=== PATIENT | female | born 2000 | race Caucasian/White ===

== ENCOUNTER 2020-05-07 15:21 | Emergency (ER) | payer BC, SELFPAY ==
[2020-05-07 15:41] VITALS: BP 142/61; PULSE 83; RESP 16; TEMP 37; O2SAT 99; BMI 22.8
[2020-05-07 22:00] VITALS: BP 154/67; PULSE 68; RESP 15; TEMP 36.9; O2SAT 100
--- NOTE | 2020-05-08 01:20 | ED.ABDPAIN ---
HPI - Abdominal Pain General Chief Complaint: Abdominal Pain <ANNE Gerber Last Filed: 05/08/20 01:59> Stated Complaint: LOWER BACK PAIN <ANNE Gerber Last Filed: 05/08/20 01:59> Time Seen by Provider: 05/08/20 00:50 <ANNE Gerber Last Filed: 05/08/20 01:59> Source: patient <ANNE Gerber Last Filed: 05/08/20 01:59> Mode of arrival: ambulatory <ANNE Gerber Last Filed: 05/08/20 01:59> Limitations: no limitations <ANNE Gerber Last Filed: 05/08/20 01:59> History of Present Illness HPI narrative: Patient presents to ED for bilateral flank pain for about a week and half. Patient states she had just finished treatment for urinary tract infection. Patient states she had hematuria and dysuria and that improved, but still had bilateral flank pain. Patient states history of pyelonephritis as a child. Patient denies any recent trauma to the back or abdomen. <ANNE Gerber Last Filed: 05/08/20 01:59> Related Data Allergies/Adverse Reactions: Allergies Allergy/AdvReac Type Severity Reaction Status Date / Time No Known Allergies Allergy Verified 05/07/20 15:42 <ANNE Gerber Last Filed: 05/08/20 01:59> Review of Systems Review of Systems Yes all other systems are reviewed and are negative <ANNE Gerber Last Filed: 05/08/20 01:59> Constitutional: Reports as per HPI and Reports no additional constitutional complaints <ANNE Gerber Last Filed: 05/08/20 01:59> Eyes: Reports as per HPI and Reports no additional eye complaints <ANNE Gerber Last Filed: 05/08/20 01:59> Reports system reviewed and no additional complaints, except as documented and Reports as per HPI <ANNE Gerber Last Filed: 05/08/20 01:59> Cardiovascular: Reports as per HPI and Reports no additional cardiovascular complaints <ANNE Gerber Last Filed: 05/08/20 01:59> Respiratory: Reports as per HPI and Reports no additional respiratory complaints <ANNE Gerber Last Filed: 05/08/20 01:59> Gastrointestinal: Reports as per HPI and Reports no additional gastrointestinal complaints <ANNE Gerber Last Filed: 05/08/20 01:59> Comments: Bilateral flank pain <ANNE Gerber Last Filed: 05/08/20 01:59> Genitourinary: Reports no additional female genitourinary complaints and Reports as per HPI <ANNE Gerber Last Filed: 05/08/20 01:59> Musculoskeletal: Reports no additional musculoskeletal complaints and Reports as per HPI <ANNE Gerber Last Filed: 05/08/20 01:59> Psychiatric: Reports no additional psychiatric complaints and Reports as per HPI <ANNE Gerber Last Filed: 05/08/20 01:59> Physical Exam Vital Signs: Vital Signs: Last Vital Signs Temp 98.5 F 05/07/20 22:00 Pulse 68 05/07/20 22:00 Resp 05/07/20 22:00 BP 154/67 H 05/07/20 22:00 Pulse Ox 100 05/07/20 22:00 Body Mass Index 22.8 <ANNE Gerber Last Filed: 05/08/20 01:59> Vital Signs: Last Vital Signs Temp 98.5 F 05/07/20 22:00 Pulse 68 05/07/20 22:00 Resp 05/07/20 22:00 BP 154/67 H 05/07/20 22:00 Pulse Ox 100 05/07/20 22:00 Body Mass Index 22.8 <Santiago Ornelas MD - Last Filed: 05/08/20 03:17> Const: General: cooperative, healthy appearing, comfortable, no acute distress, well developed, alert and awake <ANNE Gerber Last Filed: 05/08/20 01:59> Orientation/consciousness: patient oriented x3 <ANNE Gerber Last Filed: 05/08/20 01:59> HENMT: Head: Yes normal to inspection and Yes No palpable skull fracture present <ANNE Gerber Last Filed: 05/08/20 01:59> Eyes: General: appearance normal, both eyes and all related structures <ANNE Gerber Last Filed: 05/08/20 01:59> Neck: Neck: Yes normal visual inspection and Yes full ROM <ANNE Gerber Golden Last Filed: 05/08/20 01:59> Chest: Chest palpation & inspection: normal inspection of the chest and normal palpation of entire chest wall <ANNE Gerber Golden Last Filed: 05/08/20 01:59> Resp: Effort & Inspection: normal respiratory effort and able to speak in complete sentences <ANNE Gerber Last Filed: 05/08/20 01:59> Auscultation: clear to auscultation bilaterally <ANNE Gerber Last Filed: 05/08/20 01:59> Cardio: Jugular venous distension: no JVD <ANNE Gerber Last Filed: 05/08/20 01:59> Heart sounds: S1 normal heart sound present and S2 normal heart sound present <ANNE Gerber Last Filed: 05/08/20 01:59> GI: Inspection: Yes normal to inspection and No abdominal wall ecchymosis <ANNE Gerber Last Filed: 05/08/20 01:59> Palpation (GI): Soft to palpation, not firm, nontender, no guarding and not rigid <ANNE Gerber Last Filed: 05/08/20 01:59> : General: Yes CVA tenderness (Bilateral) and Yes no CVA tenderness <ANNE Gerber Last Filed: 05/08/20 01:59> Back/Spine/Pelvis: Back: no CVA tenderness, CVA tenderness (Bilateral) and No back tenderness <ANNE Gerber Last Filed: 05/08/20 01:59> Skin: General skin exam: no rashes or lesions noted and elasticity normal <ANNE Gerber Last Filed: 05/08/20 01:59> Neuro: General: patient oriented x3 and CN's II-XI intact bilaterally <ANNE Gerber Last Filed: 05/08/20 01:59> Cranial nerves: Yes CN's II-XII intact bilaterally <ANNE Gerber Last Filed: 05/08/20 01:59> Extrem: General: Yes normal to inspection and Yes full ROM <ANNE Gerber - Last Filed: 05/08/20 01:59> Psych: Appearance: grossly normal, well kempt and not disheveled <ANNE Gerber - Last Filed: 05/08/20 01:59> Course Course Course Narrative: Patient will have labs drawn to evaluate kidney function, UA to rule out any UTI, most likely may go for abdominal CT scan to rule out kidney stones or pyelonephritis although unlikely patient is not in any distress. <ANNE Gerber - Last Filed: 05/08/20 01:59> Reevaluation(s) Reevaluation #1: Case signed out to <ANNE Gerber - Last Filed: 05/08/20 01:59> MDM - Abdominal Pain MDM Narrative Medical decision making narrative: Flank pain <ANNE Gerber Last Filed: 05/08/20 01:59> Lab Data Result diagrams: : 05/08/20 01:54 05/08/20 01:54 <ANNE Gerber - Last Filed: 05/08/20 01:59> Labs: Lab Results 05/08/20 05/08/20 05/08/20 Range/Units 01:54 01:54 01:54 WBC 11.8 H (4.8-10.8) X10*3/uL RBC 4.25 (4.20-5.50) X10*6/uL Hgb 12.9 (12.0-16.0) g/dl Hct 39.5 (37-47) % MCV 92.9 (80-98) fL MCH 30.4 (27.0-33.0) pg MCHC 32.7 (31.0-35.0) g/dl RDW 12.3 (11.0-16.0) % Plt Count 336 (160-400) X10*3/uL MPV 10.4 (9.4-12.3) fL Immature Gran % (Auto) 1.3 H (0.0-0.4) % Neut % (Auto) 62.1 (45-73) % Lymph % (Auto) 26.0 (20-40) % [place] % (Auto) 5.8 (2-11) % Eos % (Auto) 4.2 H (0-4) % Baso % (Auto) 0.6 (0-2) % Lymph # (Auto) 3.1 (1.2-4.9) X10*3/uL [place] # (Auto) 0.7 (0.1-1.2) X10*3/uL Eos # (Auto) 0.5 H (0.0-0.4) X10*3/uL Baso # (Auto) 0.1 (0.0-0.2) X10*3/uL Abs Immat Gran (auto) 0.15 H (0.00-0.03) X10*3/uL Absolute Neuts (auto) 7.3 (2.0-8.3) X10*3/uL Absolute Nucleated RBC 0.000 (0.0-0.012) X10*3/uL Nucleated RBC % (auto) 0.0 (0.0-0.2) /100WBC PT 11.5 (10.8-13.0) SEC INR 1.0 (0.9-1.1) APTT 27.1 (24.1-38.0) SEC Sodium 140 (135-145) mmol/L Potassium 4.3 (3.3-5.1) mmol/l Chloride 106 (96-108) mmol/L Carbon Dioxide 22 (22-29) mmol/L Anion Gap 16 (12-20) BUN 13 (9-16) mg/dL Creatinine 0.83 (0.5-1.4) mg/dL Estim Creat Clear Calc 84.7 Estimated GFR > 60 Random Glucose 90 (60-115) mg/dL Calcium 9.1 (8.4-10.2) mg/dL Total Bilirubin 0.4 (0.0-1.0) mg/dL Direct Bilirubin < 0.2 (0.0-0.5) mg/dL AST 15 (5-31) U/L ALT 9 (0-31) U/L Alkaline Phosphatase 30 L (39-117) U/L Total Protein 7.3 (6.5-8.0) g/dL Albumin 3.9 (3.5-5.0) g/dL Lipase 17 (8-78) U/L Urine Color Urine Appearance Urine pH (5.0-8.0) Ur Specific [place] (1.005-1.025) Urine Protein (NEG-TRACE) MG/DL Urine Glucose (UA) (NEG) MG/DL Urine Ketones (NEG) MG/DL Urine Blood (NEG) Urine Nitrite (NEG) Ur Leukocyte Esterase (NEG) Urine RBC (0) /HPF Urine WBC (0-4) /HPF Ur Squamous Epith Cells /LPF Calcium Oxalate Crystal /LPF Urine Bacteria /LPF Urine Mucus /LPF Urine Test (NEGATIVE) 05/08/20 Range/Units 01:54 WBC (4.8-10.8) X10*3/uL RBC (4.20-5.50) X10*6/uL Hgb (12.0-16.0) g/dl Hct (37-47) % MCV (80-98) fL MCH (27.0-33.0) pg MCHC (31.0-35.0) g/dl RDW (11.0-16.0) % Plt Count (160-400) X10*3/uL MPV (9.4-12.3) fL Immature Gran % (Auto) (0.0-0.4) % Neut % (Auto) (45-73) % Lymph % (Auto) (20-40) % [place] % (Auto) (2-11) % Eos % (Auto) (0-4) % Baso % (Auto) (0-2) % Lymph # (Auto) (1.2-4.9) X10*3/uL [place] # (Auto) (0.1-1.2) X10*3/uL Eos # (Auto) (0.0-0.4) X10*3/uL Baso # (Auto) (0.0-0.2) X10*3/uL Abs Immat Gran (auto) (0.00-0.03) X10*3/uL Absolute Neuts (auto) (2.0-8.3) X10*3/uL Absolute Nucleated RBC (0.0-0.012) X10*3/uL Nucleated RBC % (auto) (0.0-0.2) /100WBC PT (10.8-13.0) SEC INR (0.9-1.1) APTT (24.1-38.0) SEC Sodium (135-145) mmol/L Potassium (3.3-5.1) mmol/l Chloride (96-108) mmol/L Carbon Dioxide (22-29) mmol/L Anion Gap (12-20) BUN (9-16) mg/dL Creatinine (0.5-1.4) mg/dL Estim Creat Clear Calc Estimated GFR Random Glucose (60-115) mg/dL Calcium (8.4-10.2) mg/dL Total Bilirubin (0.0-1.0) mg/dL Direct Bilirubin (0.0-0.5) mg/dL AST (5-31) U/L ALT (0-31) U/L Alkaline Phosphatase (39-117) U/L Total Protein (6.5-8.0) g/dL Albumin (3.5-5.0) g/dL Lipase (8-78) U/L Urine Color YELLOW Urine Appearance CLEAR Urine pH 6.0 (5.0-8.0) Ur Specific [place] >= 1.030 H (1.005-1.025) Urine Protein NEG (NEG-TRACE) MG/DL Urine Glucose (UA) NEG (NEG) MG/DL Urine Ketones NEG (NEG) MG/DL Urine Blood TRACE (NEG) Urine Nitrite NEG (NEG) Ur Leukocyte Esterase NEG (NEG) Urine RBC 1-4 (0) /HPF Urine WBC 1-4 (0-4) /HPF Ur Squamous Epith Cells 2+ /LPF Calcium Oxalate Crystal 2+ /LPF Urine Bacteria 2+ /LPF Urine Mucus 2+ /LPF Urine Test NEGATIVE (NEGATIVE) <ANNE Gerber - Last Filed: 05/08/20 01:59> Lab Results 05/08/20 05/08/20 05/08/20 Range/Units 01:54 01:54 01:54 WBC 11.8 H (4.8-10.8) X10*3/uL RBC 4.25 (4.20-5.50) X10*6/uL Hgb 12.9 (12.0-16.0) g/dl Hct 39.5 (37-47) % MCV 92.9 (80-98) fL MCH 30.4 (27.0-33.0) pg MCHC 32.7 (31.0-35.0) g/dl RDW 12.3 (11.0-16.0) % Plt Count 336 (160-400) X10*3/uL MPV 10.4 (9.4-12.3) fL Immature Gran % (Auto) 1.3 H (0.0-0.4) % Neut % (Auto) 62.1 (45-73) % Lymph % (Auto) 26.0 (20-40) % [place] % (Auto) 5.8 (2-11) % Eos % (Auto) 4.2 H (0-4) % Baso % (Auto) 0.6 (0-2) % Lymph # (Auto) 3.1 (1.2-4.9) X10*3/uL [place] # (Auto) 0.7 (0.1-1.2) X10*3/uL Eos # (Auto) 0.5 H (0.0-0.4) X10*3/uL Baso # (Auto) 0.1 (0.0-0.2) X10*3/uL Abs Immat Gran (auto) 0.15 H (0.00-0.03) X10*3/uL Absolute Neuts (auto) 7.3 (2.0-8.3) X10*3/uL Absolute Nucleated RBC 0.000 (0.0-0.012) X10*3/uL Nucleated RBC % (auto) 0.0 (0.0-0.2) /100WBC PT 11.5 (10.8-13.0) SEC INR 1.0 (0.9-1.1) APTT 27.1 (24.1-38.0) SEC Sodium 140 (135-145) mmol/L Potassium 4.3 (3.3-5.1) mmol/l Chloride 106 (96-108) mmol/L Carbon Dioxide 22 (22-29) mmol/L Anion Gap 16 (12-20) BUN 13 (9-16) mg/dL Creatinine 0.83 (0.5-1.4) mg/dL Estim Creat Clear Calc 84.7 Estimated GFR > 60 Random Glucose 90 (60-115) mg/dL Calcium 9.1 (8.4-10.2) mg/dL Total Bilirubin 0.4 (0.0-1.0) mg/dL Direct Bilirubin < 0.2 (0.0-0.5) mg/dL AST 15 (5-31) U/L ALT 9 (0-31) U/L Alkaline Phosphatase 30 L (39-117) U/L Total Protein 7.3 (6.5-8.0) g/dL Albumin 3.9 (3.5-5.0) g/dL Lipase 17 (8-78) U/L Urine Color Urine Appearance Urine pH (5.0-8.0) Ur Specific [place] (1.005-1.025) Urine Protein (NEG-TRACE) MG/DL Urine Glucose (UA) (NEG) MG/DL Urine Ketones (NEG) MG/DL Urine Blood (NEG) Urine Nitrite (NEG) Ur Leukocyte Esterase (NEG) Urine RBC (0) /HPF Urine WBC (0-4) /HPF Ur Squamous Epith Cells /LPF Calcium Oxalate Crystal /LPF Urine Bacteria /LPF Urine Mucus /LPF Urine Test (NEGATIVE) 05/08/20 Range/Units 01:54 WBC (4.8-10.8) X10*3/uL RBC (4.20-5.50) X10*6/uL Hgb (12.0-16.0) g/dl Hct (37-47) % MCV (80-98) fL MCH (27.0-33.0) pg MCHC (31.0-35.0) g/dl RDW (11.0-16.0) % Plt Count (160-400) X10*3/uL MPV (9.4-12.3) fL Immature Gran % (Auto) (0.0-0.4) % Neut % (Auto) (45-73) % Lymph % (Auto) (20-40) % [place] % (Auto) (2-11) % Eos % (Auto) (0-4) % Baso % (Auto) (0-2) % Lymph # (Auto) (1.2-4.9) X10*3/uL [place] # (Auto) (0.1-1.2) X10*3/uL Eos # (Auto) (0.0-0.4) X10*3/uL Baso # (Auto) (0.0-0.2) X10*3/uL Abs Immat Gran (auto) (0.00-0.03) X10*3/uL Absolute Neuts (auto) (2.0-8.3) X10*3/uL Absolute Nucleated RBC (0.0-0.012) X10*3/uL Nucleated RBC % (auto) (0.0-0.2) /100WBC PT (10.8-13.0) SEC INR (0.9-1.1) APTT (24.1-38.0) SEC Sodium (135-145) mmol/L Potassium (3.3-5.1) mmol/l Chloride (96-108) mmol/L Carbon Dioxide (22-29) mmol/L Anion Gap (12-20) BUN (9-16) mg/dL Creatinine (0.5-1.4) mg/dL Estim Creat Clear Calc Estimated GFR Random Glucose (60-115) mg/dL Calcium (8.4-10.2) mg/dL Total Bilirubin (0.0-1.0) mg/dL Direct Bilirubin (0.0-0.5) mg/dL AST (5-31) U/L ALT (0-31) U/L Alkaline Phosphatase (39-117) U/L Total Protein (6.5-8.0) g/dL Albumin (3.5-5.0) g/dL Lipase (8-78) U/L Urine Color YELLOW Urine Appearance CLEAR Urine pH 6.0 (5.0-8.0) Ur Specific [place] >= 1.030 H (1.005-1.025) Urine Protein NEG (NEG-TRACE) MG/DL Urine Glucose (UA) NEG (NEG) MG/DL Urine Ketones NEG (NEG) MG/DL Urine Blood TRACE (NEG) Urine Nitrite NEG (NEG) Ur Leukocyte Esterase NEG (NEG) Urine RBC 1-4 (0) /HPF Urine WBC 1-4 (0-4) /HPF Ur Squamous Epith Cells 2+ /LPF Calcium Oxalate Crystal 2+ /LPF Urine Bacteria 2+ /LPF Urine Mucus 2+ /LPF Urine Test NEGATIVE (NEGATIVE) <Santiago Ornelas MD - Last Filed: 05/08/20 03:17> Discharge Plan Discharge Clinical Impression: Bilateral flank pain <ANNE Gerber - Last Filed: 05/08/20 01:59> Patient Disposition: Home, Self-Care <ANNE Gerber - Last Filed: 05/08/20 01:59> Instructions: Acute Low Back Pain (ED) <ANNE Gerber - Last Filed: 05/08/20 01:59> Additional Instructions: Your blood work today was unremarkable. Your urine tests were negative for infection. The CT scan of your abdomen and pelvis did not reveal inflammation of your kidneys or any other cause for your pain. Your pain is most likely secondary to musculoskeletal sprain/strain. Back Pain Discharge Instructions: Take Motri(ibuprofen) 200 mg pills, 3 pills every 6 hours as needed for pain. Take Tyleno(acetaminophen) 325 mg pills, 2 pills every 4 hours as needed for pain. Apply ice for 15 minutes to the area that hurts on your back, then apply a heating a pad on low for 15 minutes. Do this 4-6 times a day to help reduce the pain in your back. Continue with normal activities as tolerated since staying in bed and not moving around will make your pain worse. You can also try over the counter lidocaine patches as directed on the box to help with the pain. Please return to the Emergency Department or see your doctor immediately if your symptoms get worse or if you develop any new symptoms that are concerning you. Follow up with your doctor in 2 day. Please read the other printed discharge instructions on back pain. <ANNE Gerber - Last Filed: 05/08/20 01:59> PMF Past Medical History Medical History: Medical History (Updated 05/08/20 @ 03:16 by Santiago Ornelas MD) No known health problems <ANNE Gerber - Last Filed: 05/08/20 01:59> Social History Social History: Social History Advance Directives: No <ANNE Gerber - Last Filed: 05/08/20 01:59>
[2020-05-08] MEDS: 0.9 % Sodium Chloride 1,000 ML 999 ML IV (01:55)
--- NOTE | 2020-05-08 01:57 | CT_ITS ---
EXAMINATION: CT ABDOMEN AND PELVIS WITHOUT CONTRAST CLINICAL INFORMATION: Bilateral flank pains. Kidney stones. Question pyelonephritis. COMPARISON: None TECHNIQUE: Multidetector volumetric imaging was performed from the superior aspect of the liver through the pubic symphysis. Sagittal and coronal reformatted images were obtained on the technologist's workstation. This CT examination was performed using dose optimization techniques as appropriate, variously including the following: *Automated exposure control *Adjustment of mA and/or kV according to patient size (this includes techniques or standardized protocols for targeted exams where dose is matched to indication/reason for exam; i.e. extremities or head) *Use of iterative reconstruction technique DLP: 433 mGy-cm FINDINGS: LUNG BASES: The visualized lung bases are unremarkable. LIVER, GALLBLADDER, AND BILIARY TREE: The liver is normal in size, shape, and attenuation. No focal hepatic lesion or biliary ductal dilatation is present. The gallbladder is contracted with no evidence of radiopaque gallstones, gallbladder wall thickening, or obvious pericholecystic inflammatory changes. PANCREAS: Unremarkable. SPLEEN: Unremarkable. ADRENAL GLANDS: Unremarkable. KIDNEYS AND URETERS: The kidneys are normal in size, shape, and attenuation. No hydronephrosis, hydroureter, or calculi seen. No perinephric stranding. BLADDER: Unremarkable. GASTROINTESTINAL TRACT: The stomach is unremarkable. Normal caliber small bowel. No obstruction. Normal appendix. No colonic wall thickening or acute inflammatory changes. Moderate colonic stool burden. No free air. No free fluid. ABDOMINAL WALL: No significant hernia is appreciated. LYMPH NODES: Normal. VASCULAR: Unremarkable. PELVIC VISCERA: The uterus and adnexa are unremarkable. OSSEOUS STRUCTURES: Unremarkable. CT/CT abdomen pelvis wo con IMPRESSION: No suspicious findings in the abdomen or pelvis. No hydronephrosis or nephrolithiasis. No perinephric stranding. Normal appendix. Moderate colonic stool burden.
[2020-05-08 02:01] LABS: MANUAL DIFF FLAG NO
--- NOTE | 2020-05-08 02:02 | PC.NURSE ---
patient reports a covid exposure 3 days ago. Feels weak and tired. Mild congestion. Reports whole bubble of friends feels the same.
[2020-05-08 02:11] LABS: Basophils Absolute Auto 0.1 X10*3/uL (0.0-0.2); Basophils Percent Auto 0.6 % (0-2); Eosinophils Absolute Auto 0.5 X10*3/uL (0.0-0.4); Eosinophils Percent Auto 4.2 % (0-4); Hematocrit 39.5 % (37-47); Hemoglobin 12.9 g/dl (12.0-16.0); Imm Gran Abs Auto 0.15 X10*3/uL (0.00-0.03); Imm Gran Pct Auto 1.3 % (0.0-0.4); Lymphocytes Absolute Auto 3.1 X10*3/uL (1.2-4.9); Mean Corpuscular HGB Conc 32.7 g/dl (31.0-35.0); Mean Corpuscular Hemoglobin 30.4 pg (27.0-33.0); Mean Corpuscular Volume 92.9 fL (80-98); Mean Platelet Volume 10.4 fL (9.4-12.3); Monocytes Absolute Auto 0.7 X10*3/uL (0.1-1.2); Monocytes Percent Auto 5.8 % (2-11); Neutrophils Absolute Auto 7.3 X10*3/uL (2.0-8.3); Neutrophils Percent Auto 62.1 % (45-73); Platelet Count 336 X10*3/uL (160-400); Red Blood Count 4.25 X10*6/uL (4.20-5.50); Red Cell Distribution Width 12.3 % (11.0-16.0); White Blood Count 11.8 X10*3/uL (4.8-10.8)
[2020-05-08 02:15] LABS: Glucose Urine UA NEG (NEG); Leukocyte Esterase Urine NEG (NEG); Nitrite Urine NEG (NEG); Specific Gravity - Urine >= 1.030 (1.005-1.025); Urine Blood TRACE (NEG); Urine Ketones NEG (NEG); Urine Protein NEG (NEG-TRACE)
[2020-05-08 02:16] LABS: Appearance Urine CLEAR; Color Urine YELLOW
[2020-05-08 02:17] LABS: Prothrombin Time 11.5 SEC (10.8-13.0); UPreg QC Valid YES; Urine Pregnancy NEGATIVE (NEGATIVE)
[2020-05-08 02:20] LABS: Partial Thromboplastin Time 27.1 SEC (24.1-38.0)
[2020-05-08 02:33] LABS: Alanine Aminotransferase 9 U/L (0-31); Albumin Level 3.9 g/dL (3.5-5.0); Alkaline Phosphatase 30 U/L (39-117); Anion Gap 16 (12-20); Aspartate Amino Transferase 15 U/L (5-31); Bilirubin Direct < 0.2 mg/dL (0.0-0.5); Bilirubin Total 0.4 mg/dL (0.0-1.0); Blood Urea Nitrogen 13 mg/dL (9-16); Calcium 9.1 mg/dL (8.4-10.2); Carbon Dioxide 22 mmol/L (22-29); Chloride 106 mmol/L (96-108); Creatinine Clr Calc Pharmacy 84.7; Estimated Glomerular Filt Rate > 60; Glucose Random 90 mg/dL (60-115); Lipase 17 U/L (8-78); Potassium 4.3 mmol/l (3.3-5.1); Sodium 140 mmol/L (135-145); Total Protein 7.3 g/dL (6.5-8.0)
[2020-05-08 02:34] LABS: Bacteria Urine 2+ /LPF; Calcium Oxalate Crystals Urine 2+ /LPF; Mucus Urine 2+ /LPF; Squamous Epithelial Cell Urine 2+ /LPF
== END 2020-05-08 03:23 | disposition home or self-care (01) ==
PROVIDERS: Physician Assistant; Emergency Provider Emergency Medicine Emergency Medical Services
DX: R10.9 Unspecified abdominal pain (principal); M54.5 Low back pain
CPT/HCPCS: 36415; 74176; 80053; 80076; 81001; 81003; 81025; 82248; 83690; 85025; 85610; 85730; 96360; 99284